=== PATIENT | male | born 1995 | race Hispanic/Latino ===

== ENCOUNTER 2019-12-25 19:06 | Emergency (ER) | payer OTHER ==
[2019-12-25] MEDS ORDERED: ALBUTEROL INHALER 90MCG/INH IH ONE (19:44)
[2019-12-25] MEDS ORDERED: AZITHROMYCIN 250 MG TABLET PO ONE (19:44)
[2019-12-25] MEDS ORDERED: ACETAMINOPHEN EXTRA STRENGTH 500 MG TABLET ONE (19:45)
== END 2019-12-25 19:59 | disposition home or self-care (01) ==
LOC: EDH 19:06
DX: R50.9 Fever, unspecified (principal); R05 Cough; R19.7 Diarrhea, unspecified; R07.89 Other chest pain; R06.02 Shortness of breath; R51 Headache; Z20.828 Contact with and (suspected) exposure to other viral communicable diseases; Z72.0 Tobacco use